=== PATIENT | male | born 1990 | race American Indian/Alaskan Native ===

== ENCOUNTER 2021-01-18 12:42 | Emergency (ER) | payer SELFPAY ==
[2021-01-18 12:54] VITALS: BP 123/61
--- NOTE | 2021-01-18 13:14 | Emergency Department Report ---
Chief Complaint: Headache Stated Complaint: HEADACHE - HPI History of Present Illness: 30-year-old -[place] male presents to the emergency room telling the triage staff that he had a headache for 4 days. Patient comes to me and tells me that he needs a shot as he has an STD. Patient denies any dysuria no abdominal pain no fever no chills. - Exam Vital Signs: Vital Signs 01/18/21 12:52 Temperature 98 F Pulse Rate 77 Respiratory 20 Rate Blood Pressure 123/61 O2 Sat by Pulse 100 Oximetry Physical Exam: Alert and oriented x3 no acute distress nontoxic in appearance Nonlabored breathing Ambulatory without difficulties MSE screening note: Focused history and physical exam performed. Due to findings the following was ordered: 30-year-old -[place] male presents to the emergency room telling the triage staff that he had a headache for 4 days. Patient comes to me and tells me that he needs a shot as he has an STD. Patient denies any dysuria no abdominal pain no fever no chills. Patient been referred to outpatient urgent care or health department. ED Disposition for MSE Condition: Stable
== END 2021-01-18 13:14 | disposition left against medical advice (07) ==
LOC: ED 12:42
DX: R51.9 Headache, unspecified (principal)
CPT/HCPCS: 99281